=== PATIENT | male | born 1940 | race Caucasian/White ===

== ENCOUNTER 2019-02-24 15:12 | Inpatient (IN) | payer MEDICARE, OTHER ==
[2019-02-24] MEDS ORDERED: SODIUM CHLORIDE 0.9% 1,000 ML IV STA (16:08)
[2019-02-24] MEDS ORDERED: HYDROmorphone 1 MG/ML 1 ML SYRINGE IVP STA (16:08)
--- NOTE | 2019-02-24 16:15 | ED ---
General Adult HPI - General Chief complaint: Fall Stated complaint: Fall Time Seen by Provider: 02/24/19 15:31 Source: patient, family, EMS, RN notes reviewed Mode of arrival: EMS Limitations: no limitations - History of Present Illness Initial comments: Patient is a pleasant 78-year-old male presenting to the emergency department following a fall. Patient was climbing up a ladder towards the roof. Patient was not yet to the roof and was estimated fell around 7 feet. Patient states he fell because of his chronic vertigo. Patient landed on his left posterior shoulder. Patient has significant discomfort in this area, increased with movement. Patient states it hurts to take a deep breath otherwise does not feel short of breath. Patient denies anterior chest pain or abdominal pain. No head injury or loss of consciousness. Patient denies neck or midline back discomfort. Patient denies significant extremity injury. Patient did not attem pt to ambulate. Patient denies head injury or loss of consciousness. - Related Data Home Medications Medication Instructions Recorded Confirmed Levothyroxine Sodium [Synthroid] 75 mcg PO DAILY 02/24/19 02/24/19 Losartan [Cozaar] 50 mg PO DAILY 02/24/19 02/24/19 Lovastatin [Mevacor] 10 mg PO HS 02/24/19 02/24/19 Allergies Allergy/AdvReac Type Severity Reaction Status Date / Time fentanyl Allergy Unknown Verified 02/24/19 16:14 Review of Systems ROS Statement: Those systems with pertinent positive or pertinent negative responses have been documented in the HPI. ROS Other: All systems not noted in ROS Statement are negative. Constitutional: Denies: fever Eyes: Denies: eye pain ENT: Denies: ear pain Respiratory: Reports: as per HPI. Denies: cough Cardiovascular: Denies: chest pain Endocrine: Denies: fatigue Gastrointestinal: Denies: abdominal pain Genitourinary: Denies: dysuria Musculoskeletal: Reports: as per HPI Skin: Denies: rash Neurological: Denies: weakness Psychiatric: Denies: depression Past Medical History Past Medical History: Hyperlipidemia, Hypertension, Thyroid Disorder Additional Past Medical History / Comment(s): vertigo, History of Any Multi-Drug Resistant Organisms: None Reported Past Surgical History: No Surgical Hx Reported Past Psychological History: No Psychological Hx Reported Smoking Status: Never smoker Past Alcohol Use History: Occasional Past Drug Use History: None Reported General Exam Limitations: no limitations General appearance: alert Head exam: Present: atraumatic Eye exam: Present: normal appearance, PERRL Neck exam: Present: normal inspection. Absent: tenderness Respiratory exam: Present: normal lung sounds bilaterally, chest wall tenderness (Mild tenderness left upper anterior chest wall and left clavicle region) Cardiovascular Exam: Present: regular rate, normal rhythm Expanded Peripheral pulses: 2+: Radial (R), Radial (L) GI/Abdominal exam: Present: soft. Absent: distended, tenderness, guarding, rebound, rigid Extremities exam: Present: normal inspection, other (Decreased range of motion of the left shoulder secondary to pain). Absent: tenderness Back exam: Present: tenderness (Left scapular region). Absent: vertebral tenderness Neurological exam: Present: alert. Absent: motor sensory deficit Expanded Motor strength exam: RUE: 5, LUE: 5, RLE: 5, LLE: 5 Eye Response: (4) open spontaneously Motor Response: (6) obeys commands Verbal Response: (5) oriented Psychiatric exam: Present: normal affect, normal mood Skin exam: Present: abrasion (Left marcelo without bony tenderness), other (Minimal abrasion (anterior abdomen without tenderness.) Course Vital Signs 02/24/19 02/24/19 02/24/19 15:26 15:54 17:03 Temperature 97 F L Pulse Rate 63 68 Respiratory 20 18 Rate Blood Pressure 144/79 143/76 O2 Sat by Pulse 91 L 96 93 L Oximetry - Reevaluation(s) Reevaluation #1: 02/24/19 18:08 Patient reevaluated. Patient and family updated. Case discussed in detail, surgeon, Dr. maxwell, who will admit and does request medicine and pulmonary consult. EKG Findings - EKG Comments: EKG Findings:: Sinus bradycardia 59. ID 188. QRS 84. QT 440. QTc 435. Normal axis. Normal QRS. No acute ST change. Medical Decision Making - Lab Data Result diagrams: 02/24/19 15:39 02/24/19 15:39 Lab Results 02/24/19 02/24/19 02/24/19 Range/Units 15:39 15:39 15:39 WBC 11.5 H (3.8-10.6) k/uL RBC 4.78 (4.30-5.90) m/uL Hgb 14.9 (13.0-17.5) gm/dL Hct 44.2 (39.0-53.0) % MCV 92.4 (80.0-100.0) fL MCH 31.2 (25.0-35.0) pg MCHC 33.8 (31.0-37.0) g/dL RDW 12.5 (11.5-15.5) % Plt Count 206 (150-450) k/uL Neutrophils % 62 % Lymphocytes % 27 % Monocytes % 5 % Eosinophils % 4 % Basophils % 1 % Neutrophils # 7.1 (1.3-7.7) k/uL Lymphocytes # 3.1 (1.0-4.8) k/uL Monocytes # 0.6 (0-1.0) k/uL Eosinophils # 0.5 (0-0.7) k/uL Basophils # 0.1 (0-0.2) k/uL PT 10.1 (9.0-12.0) sec INR 0.9 (<1.2) APTT 22.2 (22.0-30.0) sec Sodium 139 (137-145) mmol/L Potassium 4.5 (3.5-5.1) mmol/L Chloride 104 (98-107) mmol/L Carbon Dioxide 25 (22-30) mmol/L Anion Gap 10 mmol/L BUN 26 H (9-20) mg/dL Creatinine 1.01 (0.66-1.25) mg/dL Est GFR (CKD-EPI)AfAm 82 (>60 ml/min/1.73 sqM) Est GFR (CKD-EPI)NonAf 71 (>60 ml/min/1.73 sqM) Glucose 101 H (74-99) mg/dL Calcium 9.3 (8.4-10.2) mg/dL Total Bilirubin 0.5 (0.2-1.3) mg/dL AST 33 (17-59) U/L ALT 27 (21-72) U/L Alkaline Phosphatase 79 (38-126) U/L Total Protein 6.7 (6.3-8.2) g/dL Albumin 4.0 (3.5-5.0) g/dL Serum Alcohol <10 mg/dL Blood Type Blood Type Confirm Blood Type Recheck Bld Type Recheck Status Antibody Screen Spec Expiration Date 02/24/19 02/24/19 Range/Units 16:25 16:33 WBC (3.8-10.6) k/uL RBC (4.30-5.90) m/uL Hgb (13.0-17.5) gm/dL Hct (39.0-53.0) % MCV (80.0-100.0) fL MCH (25.0-35.0) pg MCHC (31.0-37.0) g/dL RDW (11.5-15.5) % Plt Count (150-450) k/uL Neutrophils % % Lymphocytes % % Monocytes % % Eosinophils % % Basophils % % Neutrophils # (1.3-7.7) k/uL Lymphocytes # (1.0-4.8) k/uL Monocytes # (0-1.0) k/uL Eosinophils # (0-0.7) k/uL Basophils # (0-0.2) k/uL PT (9.0-12.0) sec INR (<1.2) APTT (22.0-30.0) sec Sodium (137-145) mmol/L Potassium (3.5-5.1) mmol/L Chloride (98-107) mmol/L Carbon Dioxide (22-30) mmol/L Anion Gap mmol/L BUN (9-20) mg/dL Creatinine (0.66-1.25) mg/dL Est GFR (CKD-EPI)AfAm (>60 ml/min/1.73 sqM) Est GFR (CKD-EPI)NonAf (>60 ml/min/1.73 sqM) Glucose (74-99) mg/dL Calcium (8.4-10.2) mg/dL Total Bilirubin (0.2-1.3) mg/dL AST (17-59) U/L ALT (21-72) U/L Alkaline Phosphatase (38-126) U/L Total Protein (6.3-8.2) g/dL Albumin (3.5-5.0) g/dL Serum Alcohol mg/dL Blood Type B Positive Blood Type Confirm B Positive Blood Type Recheck No Previous Record Bld Type Recheck Status CABO Indicated Antibody Screen NEGATIVE Spec Expiration Date 02/27/2019 - 9410 - Radiology Data Radiology results: report reviewed (Computed tomography scan of the brain and cervical spine show no acute process), image reviewed (Chest x-ray does show left third rib fracture. Enlarged heart/mediastinum. Possible small right pneumothorax. Computed tomography scan of the chest abdomen pelvis shows bilateral rib fractures. Tiny right pneumothorax. Infrarenal abdominal aorta aneurysm 4.2 cm small volume adjacent retrosternal blood products were pronounced on the left.) Disposition Clinical Impression: Fall, Multiple fractures of ribs of both sides, Pneumothorax Disposition: ADMITTED IP TO THIS HOSP Condition: Serious Is patient prescribed a controlled substance at d/c from ED?: No Referrals: Moises Urbina MD [Primary Care Provider] - 1-2 days Decision Time: 18:09
[2019-02-24 16:23] LABS: Basophils # (A) 0.1 k/uL (0-0.2); Basophils % (A) 1 %; Eosinophils # (A) 0.5 k/uL (0-0.7); Eosinophils % (A) 4 %; HCT 44.2 % (39.0-53.0); HGB 14.9 gm/dL (13.0-17.5); Lymphocytes # (A) 3.1 k/uL (1.0-4.8); Lymphocytes % (A) 27 %; MCH 31.2 pg (25.0-35.0); MCHC 33.8 g/dL (31.0-37.0); MCV 92.4 fL (80.0-100.0); Mean Platelet Volume 6.5; Monocytes # (A) 0.6 k/uL (0-1.0); Monocytes % (A) 5 %; Neutrophils # (A) 7.1 k/uL (1.3-7.7); Neutrophils % (A) 62 %; Platelet Count 206 k/uL (150-450); RBC 4.78 m/uL (4.30-5.90); RDW 12.5 % (11.5-15.5); WBC 11.5 k/uL (3.8-10.6)
[2019-02-24 16:32] LABS: ALT 27 U/L (21-72); AST 33 U/L (17-59); African American GFR (CKD) 82 (>60 ml/min/1.73 sqM); Alcohol <10 mg/dL; Alkaline Phosphatase 79 U/L (38-126); Anion Gap 10 mmol/L; Blood Urea Nitrogen 26 mg/dL (9-20); Calcium 9.3 mg/dL (8.4-10.2); Carbon Dioxide 25 mmol/L (22-30); Chloride 104 mmol/L (98-107); Glucose 101 mg/dL (74-99); Non-African American GFR(CKD) 71 (>60 ml/min/1.73 sqM); Potassium 4.5 mmol/L (3.5-5.1); Sodium 139 mmol/L (137-145); Total Bilirubin 0.5 mg/dL (0.2-1.3); Total Protein 6.7 g/dL (6.3-8.2)
[2019-02-24 16:38] LABS: INR 0.9 (<1.2); Partial Thromboplastin Time 22.2 sec (22.0-30.0); Prothrombin Time 10.1 sec (9.0-12.0)
--- NOTE | 2019-02-24 17:28 | CT ---
EXAMINATION TYPE: CT brain lata gonzalez DATE OF EXAM: 02/24/2019 COMPARISON: None. HISTORY: Left sided injuries after 7 foot fall from roof. TECHNIQUE: 1. Axial CT images of the head without contrast. Bone windows and sagittal and coronal reformats were reviewed. 2. Axial CT images of the cervical spine without contrast. Bone windows and sagittal and coronal refo rmats were reviewed. 3. CT DLP: 1485.3 mGycm Automated exposure control for dose reduction was used. FINDINGS: CT Head: No acute intracranial hemorrhage. Scattered periventricular and deep cortical white matter areas of l ow attenuation, likely representing sequela of chronic microangiopathy. No acute loss of vergara-white m atter differentiation to suggest large territorial infarction. Mild cerebral volume loss with appropriate size and morphology of the ventricular system. No extra-ax ial fluid collections or midline shift of structures. Patent basal cisterns. No depressed or displaced calvarial fracture. Intracranial vascular calcifications. Unaggressive opac ification of the bilateral maxillary sinuses and scattered ethmoid air cells. Surgically absent lense s. CT Cervical Spine: The cervical spine is imaged through T2. Vertebral bodies and facet joints are anatomically aligned. No fracture. Vertebral body heights are maintained. Moderate degenerative changes throughout the cervical spine characterized by disc height loss, restrictive preparation operator ior vertebral body spurring, and discogenic endplate change, greatest degree at C3-C4 and C6-C7. Mult ilevel uncovertebral and facet spurs. No prevertebral edema. Carotid vascular calcifications. Subcutaneous emphysema in the right neck soft tissues. Findings are reported separately. IMPRESSION: 1. No acute intracranial abnormality. Senescent changes including cerebral volume loss and sequale of chronic microangiopathy. 2. No acute traumatic injury of the cervical spine.
--- NOTE | 2019-02-24 17:38 | XR ---
EXAMINATION TYPE: XR chest 1V portable DATE OF EXAM: 02/24/2019 COMPARISON: 05/27/2011 HISTORY: Chest pain after fall from approximately 7 feet TECHNIQUE: Single frontal view of the chest is obtained. FINDINGS: There is a suspected trace right pneumothorax and patchy reticular opacities that may repr esent pulmonary contusions. Cardia mediastinal silhouette is enlarged. Correlate for thoracic injury. Trace left pleural effusion. Osseous structures are somewhat suboptimally visualized given patient b claire habitus. No displaced fractures are grossly evident that should be further characterized with CT. IMPRESSION: 1. Suspected small right pneumothorax and peripheral reticular opacities that may represent pulmonary contusions. 2. Widened mediastinum. Correlate for thoracic injury.
--- NOTE | 2019-02-24 17:46 | CT ---
EXAMINATION TYPE: CT ChestAbdPelvis w con DATE OF EXAM: 02/24/2019 COMPARISON: CT cervical spine same day. HISTORY: Left sided injuries after 7 foot fall from roof. CT DLP: 1003.5 mGycm Automated exposure control for dose reduction was used. CONTRAST: CT scan of the chest, abdomen and pelvis is performed without Oral Contrast and with IV Contrast, pat ient injected with 100 mL of Isovue 300. FINDINGS: CT Chest: Trace right pneumothorax. Dependent atelectasis bilaterally. Scattered emphysematous changes. No cons olidation. No pleural effusion. Bilateral pleural calcifications. Secretions in the right bronchus in termedius. Normal course and caliber of the thoracic aorta; scattered calcified and noncalcified plaque present throughout. The heart is not enlarged. No pericardial effusion. Minimally displaced right anterior first rib fracture, fracture through the second costochondral junc tion, and anterior third rib. Minimally displaced fractures through the left third, fourth, and fifth anterior ribs. Small volume adjacent retrosternal blood products more pronounced on the left. Air al rosendo the right chest soft tissues extending into the neck. CT Abdomen/Pelvis: The liver, spleen, pancreas, and adrenal glands are within normal limits. No calcified gallstones. No intra or extrahepatic biliary ductal dilatation. Renal enhancement is symmetric. Fluid attenuating left renal lesions, largest at the inferior pole me asuring up to 10 cm in craniocaudal dimension (may represent 2 adjacent cysts); adjacent fluid infilt ration into the adjacent retroperitoneal fat. Urinary bladder is within normal limits. Coarse prostat ic calcifications. No dilated bowel, free intraperitoneal fluid, or free air. Scattered colonic diverticula. No mesenter ic inflammatory changes. Patulous bilateral inguinal hernias, left larger than right. Calcified and noncalcified plaque of the abdominal aorta with infrarenal diameter measuring 4.2 x 4.2 cm. No fracture. IMPRESSION: 1. Bilateral rib fractures with trace right pneumothorax. 2. Left renal cysts with fluid infiltration into the retroperitoneal fat raises the possibility of ru ptured cyst. 3. Infrarenal abdominal aortic aneurysm measuring up to 4.2 cm in diameter.
[2019-02-24] MEDS ORDERED: HYDROcodone/APAP 5-325MG 1 EACH TAB PO PRN (18:13)
[2019-02-24] MEDS ORDERED: NALOXONE 0.4 MG/ML 1 ML VIAL IV PRN (18:13)
[2019-02-24] MEDS ORDERED: ONDANSETRON 4 MG/2 ML VIAL IVP PRN (18:13)
[2019-02-24] MEDS: HYDROcodone/APAP 5-325MG 1 EACH TAB PO PRN (19:15)
[2019-02-24] MEDS: LACTATED RINGERS 1,000 ML IV SCH (21:18)
[2019-02-24 21:51] LABS: Appearance,Urine Clear (Clear); Bilirubin,Urine Negative (Negative); Blood,Urine Negative (Negative); Color,Urine Light Yellow; Glucose,Urine (UA) Negative (Negative); Ketones,Urine 1+ (Negative); Leukocyte Esterase,Urine Negative (Negative); Nitrite,Urine Negative (Negative); PH, Urine 5.5 (5.0-8.0); Protein,Urine Negative (Negative); Urobilinogen,Urine <2.0 mg/dL (<2.0)
[2019-02-24 22:17] LABS: Amphetamine Screen,Urine Not Detected (NotDetected); Barbiturate Screen,Urine Not Detected (NotDetected); Benzodiazepines Screen,Urine Not Detected (NotDetected); Cocaine Screen,Urine Not Detected (NotDetected); Methadone Screen, Urine Not Detected (NotDetected); Opiate Screen,Urine Not Detected (NotDetected); Oxycodone Screen, Urine Not Detected (NotDetected); Phencyclidine Screen,Urine Not Detected (NotDetected); Tricyclic Antidepressant,Urine Not Detected (NotDetected); Urn Cannabinoid Scrn Not Detected (NotDetected)
[2019-02-24 22:26] LABS: Specific Gravity,Urine 1.048 (1.001-1.035)
[2019-02-24] MEDS: HYDROmorphone 1 MG/ML 1 ML SYRINGE IVP PRN (23:55)
[2019-02-25] MEDS: HYDROmorphone 1 MG/ML 1 ML SYRINGE IVP PRN (05:17)
[2019-02-25] MEDS: LEVOTHYROXINE 75 MCG TAB PO SCH (05:18)
[2019-02-25 06:48] LABS: Basophils # (A) 0.1 k/uL (0-0.2); Basophils % (A) 1 %; Eosinophils # (A) 0.2 k/uL (0-0.7); Eosinophils % (A) 2 %; HCT 42.5 % (39.0-53.0); HGB 13.4 gm/dL (13.0-17.5); Lymphocytes # (A) 2.7 k/uL (1.0-4.8); Lymphocytes % (A) 21 %; MCH 30.1 pg (25.0-35.0); MCHC 31.5 g/dL (31.0-37.0); MCV 95.6 fL (80.0-100.0); Mean Platelet Volume 7.5; Monocytes # (A) 0.8 k/uL (0-1.0); Monocytes % (A) 6 %; Neutrophils # (A) 8.6 k/uL (1.3-7.7); Neutrophils % (A) 68 %; Platelet Count 172 k/uL (150-450); RBC 4.44 m/uL (4.30-5.90); RDW 12.8 % (11.5-15.5); WBC 12.5 k/uL (3.8-10.6)
[2019-02-25] MEDS: FAMOTIDINE 20 MG TAB PO SCH ×2 (08:41→20:50)
[2019-02-25] MEDS: LOSARTAN 50 MG TAB PO SCH (08:41)
[2019-02-25] MEDS: HEPARIN SODIUM,PORCINE 5,000 UNIT/ML 1 ML VIAL SQ SCH ×2 (08:41→20:50)
[2019-02-25] MEDS: HYDROcodone/APAP 5-325MG 1 EACH TAB PO PRN (08:42)
[2019-02-25] MEDS ORDERED: IV FLUID CONTINUATION 1,000 ML IV ONE (10:25)
[2019-02-25] MEDS: fentaNYL (PF) 50 MCG/ML 2 ML AMP IV ONE ×2 (11:15→11:20)
--- NOTE | 2019-02-25 11:28 | P.GSHP ---
<Angy Rodriguez A - Last Filed: 02/25/19 14:54> History of Present Illness H&P Date: 02/25/19 Chief Complaint: trauma CHIEF COMPLAINT: s/p fall HISTORY OF PRESENT ILLNESS: 78 year old male who presented to the ER after sustaining a fall. Patient reports he was attempting to go on his roof to fix something. He was climbing a ladder when he fell approximately 10 feet. Patient reports he has chronic vertigo and states as he was climbing the ladder he be come dizzy and felt like everything was spinning. He reports landing on his left shoulder. Denies hitting his head. Denies LOC. He reports significant pain to his left shoulder and bilateral anterior chest wall this morning. He was been using his incentive spirometer. Able to achieve 500-1000cc. PAST MEDICAL HISTORY: See list. PAST SURGICAL HISTORY: See list. MEDICATIONS: See list. ALLERGIES: See list. SOCIAL HISTORY: No illicit drug use. REVIEW OF SYSTEMS: CONSTITUTIONAL: Denies fever or chills. HEENT: Denies blurred vision, vision changes, or eye pain. Denies hemoptysis Reports chronic vertigo. ENDOCRINE: Denies heat or cold intolerance. CARDIOVASCULAR: Denies chest pain or pressure. RESPIRATORY: No shortness of breath. GASTROINTESTINAL: Denies abdominal pain. Denies nausea or vomiting. NEURO: Denies history of seizures. PSYCH: No depression or suicidal ideation HEMATOLOGIC: Denies bleeding disorders. LYMPHATIC: The patient denies any lumps and bumps around the neck. GENITOURINARY: Denies any blood in urine or increased urinary frequency. MUSCULOSKELETAL: Denies myalgias. Denies joint swelling. Denies decreased range of motion beyond patients baseline. SKIN: Denies pruitis. Denies rash. PHYSICAL EXAM: VITAL SIGNS: Reviewed GENERAL: Well-developed in no acute distress. HEENT: Hard of hearing. No sclera icterus. Extraocular movements grossly intact. Moist buccal mucosa. Head is atraumatic, normocephalic. No nasal drainage. NECK: Supple without lymphadenopathy. CHEST: Non-labored respirations and equal bilateral excursions. on 3L NC. CARDIOVASCULAR: Regular rate with regular rhythm. Palpable 2+ radial pulses. ABDOMEN: Soft. Nondistended. Nontender. MUSCULOSKELETAL: No clubbing, cyanosis or edema. NEUROLOGIC: No focal or lateralizing signs. Cranial nerves II through XII grossly intact. PSYCH: Appropriate affect. Alert and oriented to person, place and time. SKIN: Well perfused. Good skin turgor. Multiple abrasions to bilateral lower extremities. LABORATORY DATA: WBC 11.5. Hemoglobin 14.9. Platelet count 206. Sodium 139. Potassium 4.5. BUN 26. Creatinine 1.01. Glucose 101. Lactic acid 0.9. IMAGIN. CT head and cervical spine: No acute intercranial abnormality. No acute traumatic injury of the cervical spine 2. CT chest abdomen pelvis: Minimally displaced right anterior first rib fracture fracture through the second costochondral junction anterior third rib. Minimally displaced fractures to the left third fourth and fifth anterior ribs. Trace right pneumothorax 3. Chest x-ray: Suspected small right pneumothorax and peripheral reticular opacities that may represent pulmonary contusions. Widened mediastinum. ASSESSMENT: 1. Trauma, s/p fall from ladder, approximately 10 feet, secondary to pre- existing chronic vertigo 2. Multiple bilateral rib fractures 3. Small right pneumothorax 4. Pulmonary contusions 5. Chronic vertigo PLAN: 1. Patient continues to have left shoulder pain. Will obtain XR of left shoulder. 2. Anesthesia consulted for possible epidural placement for pain control 3. Pulmonary consulted. Await input 4. Repeat CXR ordered this morning. Await results 5. Continue incentive spirometey 6. Activity as tolerated 7. Diet as tolerated 8. Recommend workup for chronic vertigo. Patient reports not seeing radial drill operator for plastic in over 12 years. Nurse practitioner note has been reviewed by physician. Signing provider agrees with the documented findings, assessment, and plan of care. Past Medical History Past Medical History: Hyperlipidemia, Hypertension, Thyroid Disorder Additional Past Medical History / Comment(s): vertigo, History of Any Multi-Drug Resistant Organisms: None Reported Past Surgical History: No Surgical Hx Reported Past Psychological History: No Psychological Hx Reported Smoking Status: Never smoker Past Alcohol Use History: Occasional Past Drug Use History: None Reported Medications and Allergies Home Medications Medication Instructions Recorded Confirmed Type Levothyroxine Sodium [Synthroid] 75 mcg PO DAILY 02/24/19 02/24/19 History Losartan [Cozaar] 50 mg PO DAILY 02/24/19 02/24/19 History Lovastatin [Mevacor] 10 mg PO HS 02/24/19 02/24/19 History Allergies Allergy/AdvReac Type Severity Reaction Status Date / Time fentanyl Allergy Unknown Verified 02/24/19 16:14 Surgical - Exam Vital Signs Temp Pulse Resp BP Pulse Ox 97 F L 63 20 144/79 91 L 02/24/19 15:26 02/24/19 15:26 02/24/19 15:26 02/24/19 15:26 02/24/19 15:26 Results - Labs 02/25/19 06:33 02/24/19 15:39 Abnormal Lab Results - Last 24 Hours (Table) 02/24/19 02/24/19 02/24/19 Range/Units 15:39 15:39 19:52 WBC 11.5 H (3.8-10.6) k/uL Neutrophils # (1.3-7.7) k/uL BUN 26 H (9-20) mg/dL Glucose 101 H (74-99) mg/dL Ur Specific [place] 1.048 H (1.001-1.035) Urine Ketones 1+ H (Negative) 02/25/19 Range/Units 06:33 WBC 12.5 H (3.8-10.6) k/uL Neutrophils # 8.6 H (1.3-7.7) k/uL BUN (9-20) mg/dL Glucose (74-99) mg/dL Ur Specific [place] (1.001-1.035) Urine Ketones (Negative) Diabetes panel 02/24/19 Range/Units 15:39 Sodium 139 (137-145) mmol/L Potassium 4.5 (3.5-5.1) mmol/L Chloride 104 (98-107) mmol/L Carbon Dioxide 25 (22-30) mmol/L BUN 26 H (9-20) mg/dL Creatinine 1.01 (0.66-1.25) mg/dL Glucose 101 H (74-99) mg/dL Calcium 9.3 (8.4-10.2) mg/dL AST 33 (17-59) U/L ALT 27 (21-72) U/L Alkaline Phosphatase 79 (38-126) U/L Total Protein 6.7 (6.3-8.2) g/dL Albumin 4.0 (3.5-5.0) g/dL Calcium panel 02/24/19 Range/Units 15:39 Calcium 9.3 (8.4-10.2) mg/dL Albumin 4.0 (3.5-5.0) g/dL Pituitary panel 02/24/19 Range/Units 15:39 Sodium 139 (137-145) mmol/L Potassium 4.5 (3.5-5.1) mmol/L Chloride 104 (98-107) mmol/L Carbon Dioxide 25 (22-30) mmol/L BUN 26 H (9-20) mg/dL Creatinine 1.01 (0.66-1.25) mg/dL Glucose 101 H (74-99) mg/dL Calcium 9.3 (8.4-10.2) mg/dL Adrenal panel 02/24/19 Range/Units 15:39 Sodium 139 (137-145) mmol/L Potassium 4.5 (3.5-5.1) mmol/L Chloride 104 (98-107) mmol/L Carbon Dioxide 25 (22-30) mmol/L BUN 26 H (9-20) mg/dL Creatinine 1.01 (0.66-1.25) mg/dL Glucose 101 H (74-99) mg/dL Calcium 9.3 (8.4-10.2) mg/dL Total Bilirubin 0.5 (0.2-1.3) mg/dL AST 33 (17-59) U/L ALT 27 (21-72) U/L Alkaline Phosphatase 79 (38-126) U/L Total Protein 6.7 (6.3-8.2) g/dL Albumin 4.0 (3.5-5.0) g/dL Assessment and Plan (1) Vertigo Current Visit: Yes Status: Acute Code(s): R42 - DIZZINESS AND GIDDINESS SNOMED Code(s): 668707668 (2) Pulmonary contusion Current Visit: Yes Status: Acute Code(s): S27.329A - CONTUSION OF LUNG, UNSPECIFIED, INITIAL ENCOUNTER SNOMED Code(s): 466787479 (3) Fall Current Visit: Yes Status: Acute Code(s): W19.XXXA - UNSPECIFIED FALL, INITIAL ENCOUNTER SNOMED Code(s): 8215191 (4) Multiple fractures of ribs of both sides Current Visit: Yes Status: Acute Code(s): S22.43XA - MULTIPLE FRACTURES OF RIBS, BILATERAL, INIT FOR CLOS FX SNOMED Code(s): 6831599 (5) Pneumothorax Current Visit: Yes Status: Acute Code(s): J93.9 - PNEUMOTHORAX, UNSPECIFIED SNOMED Code(s): 12389179 <Bess Carreno N - Last Filed: 02/26/19 08:49> History of Present Illness Patient reports that he had vertigo as a cause of his fall from the ladder. He has not had any work-up for over 12 years for his condition. His pain is better with epidural. Hospitalization for at least 3 days with epidural reviewed. Recommend transfer to medicine for medical cause of fall from ladder. Pulmonary following. Will follow as needed. Past Medical History - Past Family History Father Additional Family Medical History / Comment(s): Father from a myocardial infarction. Mother Additional Family Medical History / Comment(s): Mother had history of coronary artery disease and emphysema. Sister(s) Additional Family Medical History / Comment(s): The patient had one sister that from some type of cancer and one was murdered. Son(s) Additional Family Medical History / Comment(s): Patient had 2 sons. One as a teenager in a motor vehicle accident. One son is no major medical problems. Patient has one daughter that had myocardial infarction. Surgical - Exam Vital Signs Temp Pulse Resp BP Pulse Ox 97 F L 63 20 144/79 91 L 02/24/19 15:26 02/24/19 15:26 02/24/19 15:26 02/24/19 15:26 02/24/19 15:26 Results - Labs 02/25/19 06:33 02/24/19 15:39
[2019-02-25] MEDS ORDERED: diphenhydrAMINE 50 MG/ML 1 ML VIAL IVP PRN (11:31)
[2019-02-25] MEDS ORDERED: NALOXONE 0.4 MG/ML 1 ML VIAL IV PRN (11:31)
[2019-02-25] MEDS ORDERED: SODIUM CHLORIDE 0.9% 1,000 ML IV ONE (11:32)
--- NOTE | 2019-02-25 11:39 | P.PCN ---
Date of Procedure: 02/25/19 Procedure(s) Performed: Procedure= continue thoracic epidural catheter placement ,for pain control. Preoperative diagnoses= multiple rib fractures with left-sided chest wall pain. Postoperative diagnosis= same as preop diagnosis. Complications=none. Condition= stable. Description of the procedure= this is 78 years old male who had multiple fractures after he fell, and he continued to have severe chest wall pain patient will be good candidate to have thoracic epidural catheter placement procedure risk and benefits and alternatives discussed with the patient he agreed with the preceding, patient in the procedure area placed in sitting position, back prepped with Betadine 3, then under sterile technique, and the 56 levels local infiltration of the skin and subcu interstitial with lidocaine 1% 3 mL then 18- gauge Tuohy needle advanced slowly under was positive loss of resistance to normal saline no heme no paresthesia no cerebrospinal fluid, then the catheter threaded easily and taped at 10 cm, Tegaderm applied and taped
[2019-02-25] MEDS: ROPIVACAINE 250 MG, HYDROMORPHONE (PF) 5 MG in SODIUM CHLORIDE 0.9% 200 ML EPIDURAL PRN (12:30)
[2019-02-25] MEDS ORDERED: diphenhydrAMINE 25 MG CAP PO PRN (14:11)
--- NOTE | 2019-02-25 15:40 | P.CONS ---
History of Present Illness - Reason for Consult Consult date: 02/25/19 Medical management - History of Present Illness This is a 78-year-old male patient of Dr. Moises Urbnia with past medical history of hypertension, hyperlipidemia, hypothyroidism, vertigo. Patient will was apparently climbing a ladder to get onto his roof at about 10 feet in height and his foot got caught as well as there was a wind along with his chronic vertigo, patient had a fall landing on his left posterior shoulder. He came into [facility] for evaluation. He did not have a loss of consciousness or head injury. Initial pulse ox was 91%, otherwise hemodynamically stable. EKG was a sinus bradycardia with no acute ST- T wave changes. WBC 11.5, hemoglobin 14.9. Electrolytes within normal limits, blood sugar 101, BUN 26 creatinine 1.01. Liver function tests within normal limits. CAT scan of the brain and cervical spine showed no acute process. Chest x-ray showed suspected small right pneumothorax and peripheral reticular opacities may represent pulmonary contusions. Widened mediastinum. Correlate for thoracic injury. CAT scan of the chest abdomen and pelvis revealed bilateral rib fractures with trace right pneumothorax. Left renal cyst with fluid infiltration into the retroperitoneal fat raises possibility of ruptured cyst. Infrarenal abdominal aortic aneurysm measuring 4.2 cm. Minimally displaced right anterior first rib fracture, fracture through the second costochondral junction and anterior third rib. Minimal displaced fractures through the left third fourth and fifth anterior ribs. [facility] under the care of Dr. Carreno. Patient is status post epidural pain pump. Review of Systems Constitutional: Denies chills, Denies fatigue, Denies fever, Denies poor appetite, Denies weakness Eyes: denies blurred vision, denies pain Ears, nose, mouth and throat: Reports vertigo, Denies headache, Denies nasal congestion, Denies nasal discharge Cardiovascular: Reports chest pain, Denies shortness of breath, Denies syncope Respiratory: Denies congestion, Denies cough, Denies cough with sputum, Denies dyspnea, Denies excessive sputum, Denies hemoptysis, Denies home oxygen, Denies respiratory infections, Denies wheezing Gastrointestinal: Denies abdominal pain, Denies diarrhea, Denies nausea, Denies vomiting Genitourinary: Denies dysuria, Denies urinary frequency, Denies urinary hesitancy, Denies urinary retention Musculoskeletal: Reports gait dysfunction, Denies myalgias Integumentary: Reports wounds, Denies pruritus, Denies rash Neurological: Reports vertigo, Denies change in mentation, Denies change in speech, Denies numbness, Denies weakness Psychiatric: Denies anxiety, Denies depression Endocrine: Denies fatigue, Denies weight change Past Medical History Past Medical History: Hyperlipidemia, Hypertension, Thyroid Disorder Additional Past Medical History / Comment(s): vertigo, History of Any Multi-Drug Resistant Organisms: None Reported Past Surgical History: No Surgical Hx Reported Past Psychological History: No Psychological Hx Reported Smoking Status: Never smoker Past Alcohol Use History: Occasional Additional Past Alcohol Use History / Comment(s): Patient quit smoking 35 years ago. He uses alcohol rarely. He no illicit drug use. Lives with his . There are no pets in the home. Patient does not require oxygen, nebulizer, CPAP. Past Drug Use History: None Reported - Past Family History Father Additional Family Medical History / Comment(s): Father from a myocardial infarction. Mother Additional Family Medical History / Comment(s): Mother had history of coronary artery disease and emphysema. Sister(s) Additional Family Medical History / Comment(s): The patient had one sister that from some type of cancer and one was murdered. Son(s) Additional Family Medical History / Comment(s): Patient had 2 sons. One as a teenager in a motor vehicle accident. One son is no major medical problems. Patient has one daughter that had myocardial infarction. Medications and Allergies Home Medications Medication Instructions Recorded Confirmed Type Levothyroxine Sodium [Synthroid] 75 mcg PO DAILY 02/24/19 02/24/19 History Losartan [Cozaar] 50 mg PO DAILY 02/24/19 02/24/19 History Lovastatin [Mevacor] 10 mg PO HS 02/24/19 02/24/19 History Allergies Allergy/AdvReac Type Severity Reaction Status Date / Time fentanyl Allergy Unknown Verified 02/24/19 16:14 Physical Exam Vitals: Vital Signs Temp Pulse Pulse Resp BP BP Pulse Ox 02/25/19 11:46 63 18 147/74 94 L 02/25/19 11:25 62 18 142/74 94 L 02/25/19 10:27 52 L 16 132/69 95 02/25/19 07:57 96 02/25/19 07:00 98 F 59 L 16 113/65 94 L 02/25/19 02:11 98.4 F 75 18 132/76 95 02/24/19 23:45 74 16 02/24/19 19:57 97.6 F 76 18 168/78 94 L 02/24/19 19:38 94 L 02/24/19 19:30 16 02/24/19 18:47 97 F L 62 18 127/70 94 L 02/24/19 17:03 68 18 143/76 93 L 02/24/19 15:54 96 02/24/19 15:26 97 F L 63 20 144/79 91 L Intake and Output 02/24/19 02/25/19 02/25/19 22:59 06:59 14:59 Intake Total 1400 200 Output Total 600 0 Balance -600 1400 200 Intake: IV 200 Intake, IV Titration 1200 Amount Sodium Chloride 0.9% 1, 1200 000 ml @ 100 mls/hr IV . Q10H [facility] Rx#:[id number] Oral 200 Output: Urine 600 0 Other: Voiding Method Urinal Urinal # Voids 0 400 Weight 90.718 kg Gen: This is a 78-year-old male. He is resting in bed. He is status post epidural pain pump. HEENT: Head is atraumatic, normocephalic. Pupils equal, round. Sclerae is anicteric. NECK: Supple. No JVD. No lymphadenopathy. No thyromegaly. LUNGS: Clear to auscultation. No wheezes or rhonchi. No intercostal retractions. No subcutaneous emphysema. HEART: Regular rate and rhythm. No murmur. ABDOMEN: Soft. Bowel sounds are present. No masses. No tenderness. EXTREMITIES: No pedal edema. Abrasions to the left pretibial area. No cellulitis. NEUROLOGICAL: Patient is awake, alert and oriented x3. Cranial nerves 2 through 12 are grossly intact. Results CBC & Chem 7: 02/25/19 06:33 02/24/19 15:39 Labs: Abnormal Lab Results - Last 24 Hours (Table) 02/24/19 02/24/19 02/24/19 Range/Units 15:39 15:39 19:52 WBC 11.5 H (3.8-10.6) k/uL Neutrophils # (1.3-7.7) k/uL BUN 26 H (9-20) mg/dL Glucose 101 H (74-99) mg/dL Ur Specific [place] 1.048 H (1.001-1.035) Urine Ketones 1+ H (Negative) 02/25/19 Range/Units 06:33 WBC 12.5 H (3.8-10.6) k/uL Neutrophils # 8.6 H (1.3-7.7) k/uL BUN (9-20) mg/dL Glucose (74-99) mg/dL Ur Specific [place] (1.001-1.035) Urine Ketones (Negative) Assessment and Plan Plan: 1. Trauma from fall off ladder approximately 10 feet sustaining multiple bilateral rib fractures status post epidural pain pump. DuoNeb treatments 4 times daily and as needed, incentive spirometry. Repeat chest x-ray in the morning. Orthostatic vital signs ordered. Dilaudid as needed for pain as well. 2. Chronic vertigo. 3. Small right pneumothorax. 4. Pulmonary contusions. Consult with pulmonary medicine. 5. Shoulder pain, probable contusion. X-ray ordered. 6. Hypertension. Continue losartan 50 mg daily 7. Hyperlipidemia. Continue statin. 8. Hypothyroidism. Continue levothyroxine 75 g daily. 9. DVT prophylaxis. Heparin subcu every 12 hours. 10. GI prophylaxis. Pepcid. Patient will be admitted to the hospital for a minimum of 2 night stay. Discharge plan: To be determined. Impression and plan of care have been directed as dictated by the signing physician. She F[place] nurse practitioner acting as scribe for signing physician.
--- NOTE | 2019-02-25 17:19 | P.CNPUL ---
History of Present Illness Consult date: 02/25/19 Reason for consult: chest pain History of present illness: A 78-year-old male patient fell off a ladder landing on his left shoulder and back area. He was climbing a ladder and he fell off a 10 feet elevation. No altered mentation per no head trauma. His chronic vertigo. He became dizzy apparently and he fell. CAT scan of the head and cervical spine was negative. CAT scan of the chest abdomen and pelvis was done and it showed minimally displaced right anterior first rib fracture second rib costochondral junction fracture and a anterior third rib fracture. Minimal displaced fracture through the left third and fourth and fifth anterior ribs. Small-volume adjacent retrosternal blood products more pronounced on the left. There is a tiny pneumothorax on the right. The liver, spleen, pancreas and adrenal glands were all within normal limits. No other significant abnormalities was noted. The patient had a left renal lesion largest in the inferior pole of the left kidney, measuring 10 cm in size, representing 2 adjacent cysts. Bladder is within normal limits. Prostate is calcified. There was an infrarenal abdominal aortic aneurysm measuring 4.2 cm. Currently the patient is epidural Iressa catheter in place and his pain is under good control. His pain is around 2 out of 10 in severity. He is using incentive spirometer. No signs of any flail chest. He is resting comfortably in bed. He is pulse oxing 94% 3 L nasal cannula. No history of any chronic smoking. No seventh edema. No history of asthma. Most of any cardiac arrhythmias. Hemoglobin stable at 14.9 and then it dropped down to 13.4. No signs of any external bleeding. Review of Systems Constitutional: Denies chills, Denies fever Eyes: denies blurred vision, denies bulging eye, denies decreased vision Ears: deny: decreased hearing, ear discharge, earache, tinnitus Ears, nose, mouth and throat: Denies headache, Denies sore throat Cardiovascular: Reports chest pain (Details discussed above) Respiratory: Denies cough Gastrointestinal: Reports as per HPI Genitourinary: Reports as per HPI Musculoskeletal: Reports as per HPI (chest wall pain and some shoulder pain secondary to fall.) Musculoskeletal: right: as per HPI, left: shoulder pain, absent: ankle pain, ankle stiffness, ankle swelling Integumentary: Reports as per HPI Neurological: Reports as per HPI, Reports vertigo Psychiatric: Reports as per HPI Endocrine: Reports as per HPI Hematologic/Lymphatic: Reports as per HPI Allergic/Immunologic: Reports as per HPI Past Medical History Past Medical History: Hyperlipidemia, Hypertension, Thyroid Disorder Additional Past Medical History / Comment(s): vertigo, History of Any Multi-Drug Resistant Organisms: None Reported Past Surgical History: No Surgical Hx Reported Past Psychological History: No Psychological Hx Reported Smoking Status: Never smoker Past Alcohol Use History: Occasional Additional Past Alcohol Use History / Comment(s): Patient quit smoking 35 years ago. He uses alcohol rarely. He no illicit drug use. Lives with his . There are no pets in the home. Patient does not require oxygen, nebulizer, CPAP. Past Drug Use History: None Reported - Past Family History Father Additional Family Medical History / Comment(s): Father from a myocardial infarction. Mother Additional Family Medical History / Comment(s): Mother had history of coronary artery disease and emphysema. Sister(s) Additional Family Medical History / Comment(s): The patient had one sister that from some type of cancer and one was murdered. Son(s) Additional Family Medical History / Comment(s): Patient had 2 sons. One as a teenager in a motor vehicle accident. One son is no major medical problems. Patient has one daughter that had myocardial infarction. Medications and Allergies Home Medications Medication Instructions Recorded Confirmed Type Levothyroxine Sodium [Synthroid] 75 mcg PO DAILY 02/24/19 02/24/19 History Losartan [Cozaar] 50 mg PO DAILY 02/24/19 02/24/19 History Lovastatin [Mevacor] 10 mg PO HS 02/24/19 02/24/19 History Allergies Allergy/AdvReac Type Severity Reaction Status Date / Time fentanyl Allergy Unknown Verified 02/24/19 16:14 Physical Exam Vitals: Vital Signs Temp Pulse Pulse Resp BP BP Pulse Ox 02/25/19 17:10 94 L 02/25/19 15:00 97.9 F 60 14 113/65 95 02/25/19 13:45 66 150/79 02/25/19 13:30 65 130/71 02/25/19 13:15 68 151/78 02/25/19 13:00 97.8 F 61 16 150/76 93 L 02/25/19 12:15 60 18 134/68 94 L 02/25/19 11:46 63 18 147/74 94 L 02/25/19 11:25 62 18 142/74 94 L 02/25/19 10:27 52 L 16 132/69 95 02/25/19 07:57 96 02/25/19 07:00 98 F 59 L 16 113/65 94 L 02/25/19 02:11 98.4 F 75 18 132/76 95 02/24/19 23:45 74 16 02/24/19 19:57 97.6 F 76 18 168/78 94 L 02/24/19 19:38 94 L 02/24/19 19:30 16 02/24/19 18:47 97 F L 62 18 127/70 94 L Intake and Output 02/25/19 02/25/19 02/25/19 06:59 14:59 22:59 Intake Total 1400 600 Output Total 0 Balance 1400 600 Intake: IV 600 Intake, IV Titration 1200 Amount Sodium Chloride 0.9% 1, 1200 000 ml @ 100 mls/hr IV . Q10H [facility] Rx#:[id number] Oral 200 Output: Urine 0 Other: Voiding Method Urinal # Voids 400 0 GENERAL: Well-developed in no acute distress. Head exam was generally normal. There was no scleral icterus or corneal arcus. Mucous membranes were moist. Neck was supple and without jugular venous distension, thyromegaly, or carotid bruits. Carotids were easily palpable bilaterally. There was no adenopathy. HEENT: Hard of hearing. No sclera icterus. Extraocular movements grossly intact. Moist buccal mucosa. Head is atraumatic, normocephalic. No nasal drainage. NECK: Supple without lymphadenopathy. CHEST: Non-labored respirations and equal bilateral excursions. on 3L NC. No chest wall deformity. The patient has some soreness to palpation over the lateral chest area bilaterally. Breath sounds are equal and symmetrical. No wheezes. No rhonchi. No other issues otherwise for now. CARDIOVASCULAR: Regular rate with regular rhythm. Palpable 2+ radial pulses. ABDOMEN: Soft. Nondistended. Nontender. MUSCULOSKELETAL: No clubbing, cyanosis or edema. NEUROLOGIC: No focal or lateralizing signs. Cranial nerves II through XII grossly intact. PSYCH: Appropriate affect. Alert and oriented to person, place and time. SKIN: Well perfused. Good skin turgor. Multiple abrasions to bilateral lower extremities. Results - Laboratory Findings CBC and BMP: 02/25/19 06:33 02/24/19 15:39 PT/INR, D-dimer PT 10.1 sec (9.0-12.0) 02/24/19 15:39 INR 0.9 (<1.2) 02/24/19 15:39 Abnormal lab findings: Abnormal Labs 02/24/19 02/24/19 02/24/19 15:39 15:39 19:52 WBC 11.5 H Neutrophils # BUN 26 H Glucose 101 H Ur Specific [place] 1.048 H Urine Ketones 1+ H 02/25/19 06:33 WBC 12.5 H Neutrophils # 8.6 H BUN Glucose Ur Specific [place] Urine Ketones - Diagnostic Findings CT scan - chest: image reviewed Assessment and Plan Plan: 1 traumatic fall secondary to falling from a ladder, 10 feet elevation 2 traumatic bilateral rib fractures without signs of any flail chest. 3 muscular skeletal chest wall pain currently epidural bupivacaine and Dilaudid for pain control 4 bilateral right-sided rib fracture 5 small posterior hematoma formation posterior today sternum, secondary to trauma. 6 tiny right-sided pneumothorax, not causing any respiratory distress or hemodynamic instability 7 pulmonary contusion 8 chronic vertigo 9 hypertension 10 hyperlipidemia Plan Continue epidural Dilaudid and bupivacaine for pain control. Incentive spirometer. DVT and GI prophylaxis. Monitor hemoglobin. Resume all medications. Early mobility. Repeat chest x-ray in a.m. We'll continue to follow.
--- NOTE | 2019-02-25 19:12 | XR ---
EXAMINATION TYPE: XR shoulder complete LT DATE OF EXAM: 02/25/2019 COMPARISON: NONE HISTORY: Shoulder pain TECHNIQUE: 3 views FINDINGS: There is amorphous 1.5 cm calcification at the greater tuberosity of the humerus. I see no fracture nor dislocation. Glenohumeral joint is intact. IMPRESSION: Calcific tendinitis. No fracture seen.
--- NOTE | 2019-02-25 19:21 | XR ---
EXAMINATION TYPE: XR chest 1V DATE OF EXAM: 02/25/2019 COMPARISON: Yesterday HISTORY: Chest pain TECHNIQUE: Single frontal view of the chest is obtained. FINDINGS: There is coarse interstitial infiltrates in both lungs. Thoracic aorta is atheromatous. Th ere is blunting of the left costophrenic angle. IMPRESSION: Interstitial pulmonary infiltrates. Left pleural effusion. Atheromatous aorta. No defini te heart failure. This is probably due to significant pulmonary interstitial fibrosis.
[2019-02-25] MEDS: LACTATED RINGERS 1,000 ML IV SCH (20:50)
[2019-02-25] MEDS: ATORVASTATIN 10 MG TAB PO SCH (20:50)
[2019-02-26] MEDS: LEVOTHYROXINE 75 MCG TAB PO SCH (05:57)
[2019-02-26] MEDS: ROPIVACAINE 250 MG, HYDROMORPHONE (PF) 5 MG in SODIUM CHLORIDE 0.9% 200 ML EPIDURAL PRN (07:10)
[2019-02-26] MEDS: LOSARTAN 50 MG TAB PO SCH (07:12)
[2019-02-26] MEDS: FAMOTIDINE 20 MG TAB PO SCH ×2 (07:13→20:34)
[2019-02-26] MEDS: HEPARIN SODIUM,PORCINE 5,000 UNIT/ML 1 ML VIAL SQ SCH ×2 (07:14→20:34)
--- NOTE | 2019-02-26 07:50 | P.PN ---
Progress Note - Text 02/26 720am 78-year-old male status post rib fractures, was treated with thoracic epidural catheter for pain control. Patient has epidural solution running at 6 mL an hour and has no pain at rest. Patient does complain of pain when he is moved around. No motor or sensory deficits noted. I didn't think it was necessary to increase the rate to 6 mL an hour as he was comfortable with no movement.
--- NOTE | 2019-02-26 08:34 | XR ---
EXAMINATION TYPE: XR chest 1V DATE OF EXAM: 02/26/2019 COMPARISON: Prior chest x-ray 02/25/[address] 02/24/2019 HISTORY: Pneumothorax, rib fractures TECHNIQUE: Single frontal view of the chest is obtained. FINDINGS: Technique is apical lordotic. Cardiac mediastinal silhouette shows a similar appearance ac counting for differences in technique. Linear increased attenuation of the lung bases likely reflect subsegmental atelectatic change. No sizable pneumothorax or pleural effusion is evident. Rib fracture s not seen definitively on plain film. Subcutaneous emphysema seen in the neck and over the upper rig ht chest. IMPRESSION: Probable subsegmental basilar atelectatic change.
--- NOTE | 2019-02-26 09:57 | P.PN ---
Subjective Progress Note Date: 02/26/19 On today's evaluation, the patient is being seen in follow-up on 02/26/2019. He is using incentive spirometer. He is pulling approximately 1000 and his incentive spirometer. His chest x-ray from today shows small lung volumes, segmental atelectatic changes in lung bases. He is still on epidural Dilaudid at 6 mL an hour. He also has bupivacaine. Hemoglobin is stable. No altered mentation. No headaches. Anesthesia is managing his medication changes and level is around 2 of 10 when he is at rest and the pain gets worse when he moves. Breath sounds are quite diminished in the lung bases bilaterally. No fever or chills. He is on room air oxygen pulse oxing above 90%. No hemoptysis. No pleurisy. Objective - Vital Signs Vital signs: Vital Signs Temp 98.2 F 02/26/19 07:00 Pulse 67 02/26/19 07:00 Resp 16 02/26/19 07:00 BP 144/74 02/26/19 07:00 Pulse Ox 94 L 02/26/19 07:00 Intake & Output 02/25/19 02/26/19 02/26/19 18:59 06:59 18:59 Intake Total 600 480 Output Total 400 Balance 600 80 Intake: IV 600 Intake, IV Titration 240 Amount Lactated Ringers 1,000 ml 240 @ 20 mls/hr IV .Q24H [facility] Rx#:[id number] Oral 240 Output: Urine 400 Other: Voiding Method Urinal Urinal Urinal # Voids 0 1 - Exam GENERAL: Well-developed in no acute distress. Head exam was generally normal. There was no scleral icterus or corneal arcus. Mucous membranes were moist. Neck was supple and without jugular venous distension, thyromegaly, or carotid bruits. Carotids were easily palpable bilaterally. There was no adenopathy. HEENT: Hard of hearing. No sclera icterus. Extraocular movements grossly intact. Moist buccal mucosa. Head is atraumatic, normocephalic. No nasal drainage. NECK: Supple without lymphadenopathy. CHEST: Non-labored respirations and equal bilateral excursions. on 3L NC. No chest wall deformity. The patient has some soreness to palpation over the lateral chest area bilaterally. Breath sounds are equal and symmetrical There are significantly diminished in the lung bases bilaterally. There is some few crackles. CARDIOVASCULAR: Regular rate with regular rhythm. Palpable 2+ radial pulses. ABDOMEN: Soft. Nondistended. Nontender. MUSCULOSKELETAL: No clubbing, cyanosis or edema. NEUROLOGIC: No focal or lateralizing signs. Cranial nerves II through XII grossly intact. PSYCH: Appropriate affect. Alert and oriented to person, place and time. SKIN: Well perfused. Good skin turgor. Multiple abrasions to bilateral lower extremities. - Labs CBC & Chem 7: 02/25/19 06:33 02/24/19 15:39 Assessment and Plan Plan: 1 traumatic fall secondary to falling from a ladder, 10 feet elevation 2 traumatic bilateral rib fractures without signs of any flail chest. 3 muscular skeletal chest wall pain currently epidural bupivacaine and Dilaudid for pain control. The patient is still on pain control and is receiving Dilaudid 6 mL an hour and his epidural catheter along with bupivacaine. He is using incentive spirometer. His bowling 1000 on his I asked. Repeat chest x- ray showed no evidence of any pneumothorax on today's evaluation. There is some atelectatic changes in lung bases. 4 bilateral right-sided rib fracture 5 small posterior hematoma formation posterior today sternum, secondary to trauma. 6 tiny right-sided pneumothorax, not causing any respiratory distress or hemodynamic instability 7 pulmonary contusion 8 chronic vertigo 9 hypertension 10 hyperlipidemia Plan Continue epidural Dilaudid and bupivacaine for pain control. Incentive spi rometer. DVT and GI prophylaxis. Monitor hemoglobin. Resume all medications. Early mobility. Repeat chest x-ray in a.m. We'll continue to follow.
--- NOTE | 2019-02-26 12:43 | P.PN ---
<Angy Rodriguez A - Last Filed: 02/26/19 12:33> Subjective Progress Note Date: 02/26/19 CHIEF COMPLAINT: s/p fall HISTORY OF PRESENT ILLNESS: Patient examined this morning at the bedside. Patient denies pain at this time. Epidural is infusing. Patient is tolerating diet. Denies nausea or vomiting. Patient reports he has not been out of bed yet. Repeat chest x-ray reveals probable subsegmental basilar atelectasis. No sizable pneumothorax. PHYSICAL EXAM: VITAL SIGNS: Reviewed GENERAL: Well-developed in no acute distress. HEENT: Hard of hearing. No sclera icterus. Extraocular movements grossly intact. Moist buccal mucosa. Head is atraumatic, normocephalic. No nasal drainage. NECK: Supple without lymphadenopathy. CHEST: Non-labored respirations and equal bilateral excursions. on 2L NC. CARDIOVASCULAR: Regular rate with regular rhythm. Palpable 2+ radial pulses. ABDOMEN: Soft. Nondistended. Nontender. MUSCULOSKELETAL: No clubbing, cyanosis or edema. NEUROLOGIC: No focal or lateralizing signs. Cranial nerves II through XII gr ossly intact. PSYCH: Appropriate affect. Alert and oriented to person, place and time. SKIN: Well perfused. Good skin turgor. Multiple abrasions to bilateral lower extremities. ASSESSMENT: 1. Trauma, s/p fall from ladder, approximately 10 feet, secondary to pre- existing chronic vertigo 2. Multiple bilateral rib fractures 3. Small right pneumothorax 4. Pulmonary contusions 5. Chronic vertigo PLAN: 1. Continue epidural. Recommend discontinuing tomorrow (day 3) 2. Continue diet as tolerated 3. Pulmonary following. Appreciate recommendations. 4. Incentive spirometry encouraged 5. Spoke with patient and nursing regarding increasing activity. Patient must be out of bed today to prevent complications from his injuries. PT OT on cons ult. 6. Recommend workup for chronic vertigo. Patient reports not seeing shirt bander in over 12 years Nurse practitioner note has been reviewed by physician. Signing provider agrees with the documented findings, assessment, and plan of care. Objective - Vital Signs Vital signs: Vital Signs Temp 98.2 F 02/26/19 07:00 Pulse 67 02/26/19 07:00 Resp 16 02/26/19 07:00 BP 144/74 02/26/19 07:00 Pulse Ox 94 L 02/26/19 07:00 Intake & Output 02/25/19 02/26/19 02/26/19 18:59 06:59 18:59 Intake Total 600 480 Output Total 400 Balance 600 80 Intake: IV 600 Intake, IV Titration 240 Amount Lactated Ringers 1,000 ml 240 @ 20 mls/hr IV .Q24H [facility] Rx#:[id number] Oral 240 Output: Urine 400 Other: Voiding Method Urinal Urinal Urinal # Voids 0 1 - Labs CBC & Chem 7: 02/25/19 06:33 02/24/19 15:39 Assessment and Plan (1) Vertigo Current Visit: Yes Status: Acute Code(s): R42 - DIZZINESS AND GIDDINESS SNOMED Code(s): 774452635 (2) Pulmonary contusion Current Visit: Yes Status: Acute Code(s): S27.329A - CONTUSION OF LUNG, UNSPECIFIED, INITIAL ENCOUNTER SNOMED Code(s): 781110189 (3) Fall Current Visit: Yes Status: Acute Code(s): W19.XXXA - UNSPECIFIED FALL, INITIAL ENCOUNTER SNOMED Code(s): 4000845 (4) Multiple fractures of ribs of both sides Current Visit: Yes Status: Acute Code(s): S22.43XA - MULTIPLE FRACTURES OF RIBS, BILATERAL, INIT FOR CLOS FX SNOMED Code(s): 8714840 (5) Pneumothorax Current Visit: Yes Status: Acute Code(s): J93.9 - PNEUMOTHORAX, UNSPECIFIED SNOMED Code(s): 56212830 <Bess Carreno N - Last Filed: 02/26/19 22:43> Subjective is at bedside. He reports chest pain is improved with his rib fractures and epidural. No surgical intervention. Objective - Vital Signs Vital signs: Vital Signs Temp 98.0 F 02/26/19 19:25 Pulse 64 02/26/19 19:25 Resp 16 02/26/19 19:25 BP 124/70 02/26/19 19:25 Pulse Ox 93 L 02/26/19 19:25 Intake & Output 02/26/19 02/26/19 02/27/19 06:59 18:59 06:59 Intake Total 480 60.7 Output Total 400 Balance 80 60.7 Intake: Intake, IV Titration 240 60.7 Amount Lactated Ringers 1,000 ml 240 @ 20 mls/hr IV .Q24H [facility] Rx#:[id number] Ropivacaine 250 mg 60.7 Hydromorphone (Pf) 5 mg In Sodium Chloride 0.9% 200 ml @ Per Protocol EPIDURAL .Q0M PRN Rx#: [id number] Oral 240 Output: Urine 400 Other: Voiding Method Urinal Urinal Urinal # Voids 1 2 - Labs CBC & Chem 7: 02/25/19 06:33 02/24/19 15:39
[2019-02-26] MEDS: KETOROLAC 30 MG/ML 1 ML VIAL IVP SCH ×3 (13:11→22:54)
--- NOTE | 2019-02-26 15:12 | P.PN ---
Subjective Progress Note Date: 02/26/19 This is a 78-year-old male patient of Dr. Moises Urbina with past medical history of hypertension, hyperlipidemia, hypothyroidism, vertigo. Patient will was apparently climbing a ladder to get onto his roof at about 10 feet in height and his foot got caught as well as there was a wind along with his chronic vertigo, patient had a fall landing on his left posterior shoulder. He came into [facility] emergency center for evaluation. He did not have a loss of consciousness or head injury. Initial pulse ox was 91%, otherwise hemodynamically stable. EKG was a sinus bradycardia with no acute ST- T wave changes. WBC 11.5, hemoglobin 14.9. Electrolytes within normal limits, blood sugar 101, BUN 26 creatinine 1.01. Liver function tests within normal limits. CAT scan of the brain and cervical spine showed no acute process. Chest x-ray showed suspected small right pneumothorax and peripheral reticular opacities may represent pulmonary contusions. Widened mediastinum. Correlate for thoracic injury. CAT scan of the chest abdomen and pelvis revealed bilateral rib fractures with trace right pneumothorax. Left renal cyst with fluid infiltration into the retroperitoneal fat raises possibility of ruptured cyst. Infrarenal abdominal aortic aneurysm measuring 4.2 cm. Minimally displaced right anterior first rib fracture, fracture through the second costochondral junction and anterior third rib. Minimal displaced fractures through the left third fourth and fifth anterior ribs. Patient was admitted to the [facility] floor under the care of Dr. Carreno. Patient is status post epidural pain pump. 02/26: Admission has been switched over to internal medicine. Patient is followed by general surgery and Dr. Altman. Patient continues to have pain and epidural is in place. Most likely this will be discontinued by tomorrow. He is using incentive spirometer 1000. Repeat chest x-ray will be ordered. Due to continued pain, scheduled Toradol will be added and vitamin D. Patient has been encouraged to get out of bed. Patient has been afebrile, heart rate 67, blood pressure 144/74. Pulse ox 94% on 2 L and down to 88 with activity. Patient does qualify for home oxygen which will be addressed tomorrow. Anticipate possible discharge by tomorrow. Review of Systems Constitutional: Denies chills, Denies fatigue, Denies fever, Denies poor appetite, Denies weakness Eyes: denies blurred vision, denies pain Ears, nose, mouth and throat: Reports vertigo, Denies headache, Denies nasal congestion, Denies nasal discharge Cardiovascular: Reports chest pain-continue, Denies shortness of breath, Denies syncope Respiratory: Denies congestion, Denies cough, Denies cough with sputum, Denies dyspnea, Denies excessive sputum, Denies hemoptysis, Denies home oxygen, Denies respiratory infections, Denies wheezing Gastrointestinal: Denies abdominal pain, Denies diarrhea, Denies nausea, Denies vomiting Genitourinary: Denies dysuria, Denies urinary frequency, Denies urinary hesitancy, Denies urinary retention Musculoskeletal: Reports gait dysfunction, Denies myalgias Integumentary: Reports wounds, Denies pruritus, Denies rash Neurological: Reports vertigo, Denies change in mentation, Denies change in speech, Denies numbness, Denies weakness Psychiatric: Denies anxiety, Denies depression Endocrine: Denies fatigue, Denies weight change Objective - Vital Signs Vital signs: Vital Signs Temp 98.2 F 02/26/19 07:00 Pulse 67 02/26/19 07:00 Resp 16 02/26/19 07:00 BP 144/74 02/26/19 07:00 Pulse Ox 94 L 02/26/19 07:00 Intake & Output 02/25/19 02/26/19 02/26/19 18:59 06:59 18:59 Intake Total 600 480 Output Total 400 Balance 600 80 Intake: IV 600 Intake, IV Titration 240 Amount Lactated Ringers 1,000 ml 240 @ 20 mls/hr IV .Q24H [facility] Rx#:[id number] Oral 240 Output: Urine 400 Other: Voiding Method Urinal Urinal Urinal # Voids 0 1 - Exam Gen: This is a 78-year-old male. He is resting in chair. Epidural pain pump in place. HEENT: Head is atraumatic, normocephalic. Pupils equal, round. Sclerae is anicteric. NECK: Supple. No JVD. No lymphadenopathy. No thyromegaly. LUNGS: Clear to auscultation. No wheezes or rhonchi. No intercostal retractions. No subcutaneous emphysema. HEART: Regular rate and rhythm. No murmur. ABDOMEN: Soft. Bowel sounds are present. No masses. No tenderness. EXTREMITIES: No pedal edema. Abrasions to the left pretibial area. No cellulitis. NEUROLOGICAL: Patient is awake, alert and oriented x3. Cranial nerves 2 through 12 are grossly intact. - Labs CBC & Chem 7: 02/25/19 06:33 02/24/19 15:39 Assessment and Plan Plan: 1. Trauma from fall off ladder approximately 10 feet sustaining multiple bilateral rib fractures status post epidural pain pump. DuoNeb treatments 4 times daily and as needed, incentive spirometry. Orthostatic vital signs ordered. Dilaudid as needed for pain as well. Epidural pain pump to be discontinued tomorrow. Toradol scheduled around the clock. 2. Chronic vertigo. 3. Small right pneumothorax. 4. Pulmonary contusions. Consult with pulmonary medicine. 5. Shoulder pain, probable contusion. X-ray ordered. 6. Hypertension. Continue losartan 50 mg daily 7. Hyperlipidemia. Continue statin. 8. Hypothyroidism. Continue levothyroxine 75 g daily. 9. DVT prophylaxis. Heparin subcu every 12 hours. 10. GI prophylaxis. Pepcid. 11. Possible chronic hypoxic respiratory failure requiring home O2. We will plan to recheck oxygen levels tomorrow. Continue incentive spirometry. Discharge plan: Home with [facility] in 24-48 hours. Impression and plan of care have been directed as dictated by the signing physician. She [place] nurse practitioner acting as scribe for signing physician.
[2019-02-26] MEDS: LACTATED RINGERS 1,000 ML IV SCH (17:15)
[2019-02-26] MEDS: ATORVASTATIN 10 MG TAB PO SCH (20:34)
[2019-02-27] MEDS ORDERED: KETOROLAC 30 MG/ML 1 ML VIAL ONE (05:00)
[2019-02-27] MEDS ORDERED: LEVOTHYROXINE 75 MCG TAB ONE (05:00)
[2019-02-27] MEDS: KETOROLAC 30 MG/ML 1 ML VIAL IVP SCH ×2 (07:48→11:19)
[2019-02-27] MEDS: LEVOTHYROXINE 75 MCG TAB PO SCH (07:49)
[2019-02-27] MEDS: LOSARTAN 50 MG TAB PO SCH (07:57)
[2019-02-27] MEDS: CHOLECALCIFEROL 1,000 UNIT TAB PO SCH (07:57)
[2019-02-27] MEDS: FAMOTIDINE 20 MG TAB PO SCH ×2 (07:57→20:09)
[2019-02-27] MEDS: HEPARIN SODIUM,PORCINE 5,000 UNIT/ML 1 ML VIAL SQ SCH ×2 (07:58→20:09)
[2019-02-27] MEDS: ROPIVACAINE 250 MG, HYDROMORPHONE (PF) 5 MG in SODIUM CHLORIDE 0.9% 200 ML EPIDURAL PRN (08:18)
--- NOTE | 2019-02-27 12:33 | P.PN ---
<Angy Rodriguez A - Last Filed: 02/27/19 12:30> Subjective Progress Note Date: 02/27/19 CHIEF COMPLAINT: s/p fall HISTORY OF PRESENT ILLNESS: Patient examined this morning at the bedside. Patient reports his pain is tolerable. Epidural is infusing. Patient is tolerating diet. Denies nausea or vomiting. Patient reports he ambulated in the hallway yesterday and was up in the chair. Patient has not been OOB yet today. PHYSICAL EXAM: VITAL SIGNS: Reviewed GENERAL: Well-developed in no acute distress. HEENT: Hard of hearing. No sclera icterus. Extraocular movements grossly intact. Moist buccal mucosa. Head is atraumatic, normocephalic. No nasal drainage. NECK: Supple without lymphadenopathy. CHEST: Non-labored respirations and equal bilateral excursions. on 2L NC. CARDIOVASCULAR: Regular rate with regular rhythm. Palpable 2+ radial pulses. ABDOMEN: Soft. Nondistended. Nontender. MUSCULOSKELETAL: No clubbing, cyanosis or edema. NEUROLOGIC: No focal or lateralizing signs. Cranial nerves II through XII grossly intact. PSYCH: Appropriate affect. Alert and oriented to person, place and time. SKIN: Well perfused. Good skin turgor. Multiple abrasions to bilateral lower extremities. ASSESSMENT: 1. Trauma, s/p fall from ladder, approximately 10 feet, secondary to pre- existing chronic vertigo 2. Multiple bilateral rib fractures 3. Small right pneumothorax 4. Pulmonary contusions 5. Chronic vertigo PLAN: 1. Recommend discontinuing epidural today. Continue IV Toradol. 2. Continue diet as tolerated 3. Pulmonary following. Appreciate recommendations. 4. Incentive spirometry encouraged 5. Increase activity as tolerated Nurse practitioner note has been reviewed by physician. Signing provider agrees with the documented findings, assessment, and plan of care. Objective - Vital Signs Vital signs: Vital Signs Temp 97.9 F 02/27/19 07:00 Pulse 62 02/27/19 07:00 Resp 16 02/27/19 07:25 BP 146/74 02/27/19 07:00 Pulse Ox 96 02/27/19 07:00 Intake & Output 02/26/19 02/27/19 02/27/19 18:59 06:59 18:59 Intake Total 60.7 74.783 Balance 60.7 74.783 Intake: Intake, IV Titration 60.7 74.783 Amount Ropivacaine 250 mg 60.7 74.783 Hydromorphone (Pf) 5 mg In Sodium Chloride 0.9% 200 ml @ Per Protocol EPIDURAL .Q0M PRN Rx#: [id number] Other: Voiding Method Urinal Urinal Urinal # Voids 2 - Labs CBC & Chem 7: 02/25/19 06:33 02/24/19 15:39 Assessment and Plan (1) Vertigo Current Visit: Yes Status: Acute Code(s): R42 - DIZZINESS AND GIDDINESS SNOMED Code(s): 127595311 (2) Pulmonary contusion Current Visit: Yes Status: Acute Code(s): S27.329A - CONTUSION OF LUNG, UNSPECIFIED, INITIAL ENCOUNTER SNOMED Code(s): 685996076 (3) Fall Current Visit: Yes Status: Acute Code(s): W19.XXXA - UNSPECIFIED FALL, INITIAL ENCOUNTER SNOMED Code(s): 2310411 (4) Multiple fractures of ribs of both sides Current Visit: Yes Status: Acute Code(s): S22.43XA - MULTIPLE FRACTURES OF RIBS, BILATERAL, INIT FOR CLOS FX SNOMED Code(s): 5855397 (5) Pneumothorax Current Visit: Yes Status: Acute Code(s): J93.9 - PNEUMOTHORAX, UNSPECIFIED SNOMED Code(s): 46925693 <Bess Carreno N - Last Filed: 02/27/19 17:53> Subjective Recommend oral ibuprofen for transition to home. Repeat Chest xray prior to discharge. Otherwise, clear from trauma for discharge when medically stable. Objective - Vital Signs Vital signs: Vital Signs Temp 98.0 F 02/27/19 15:00 Pulse 83 02/27/19 17:26 Resp 18 02/27/19 17:26 BP 108/68 02/27/19 17:26 Pulse Ox 91 L 02/27/19 17:26 Intake & Output 02/26/19 02/27/19 02/27/19 18:59 06:59 18:59 Intake Total 60.7 74.783 Balance 60.7 74.783 Intake: Intake, IV Titration 60.7 74.783 Amount Ropivacaine 250 mg 60.7 74.783 Hydromorphone (Pf) 5 mg In Sodium Chloride 0.9% 200 ml @ Per Protocol EPIDURAL .Q0M [facility]N Rx#: [id number] Other: Voiding Method Urinal Urinal Urinal # Voids 2 2 - Labs CBC & Chem 7: 02/25/19 06:33 02/24/19 15:39
[2019-02-27] MEDS ORDERED: LIDOCAINE 5% PATCH TOPICAL SCH (12:45)
--- NOTE | 2019-02-27 13:40 | P.PN ---
Subjective Progress Note Date: 02/27/19 Principal diagnosis: Traumatic fall, musculoskeletal chest wall pain, right-sided rib fractures On 02/27/2019 patient seen in follow-up on medical surgical floor. he is awake and alert, in no acute distress, still has discomfort across his chest with deep breathing and moving, she remains on epidural drip at 5 ML per hour, however on today's exam he seems to be in less distress, epidural catheter is scheduled to be discontinued sometime this afternoon, patient will be switched to oral pain medications, in addition to pain patches, he is using his incentive spirometer, he is achieving 1500 on the today, lung sounds are clear, diminished at the bases, no rhonchi or wheezing. Vital signs are stable, no acute events overnight. Chest x-ray is pending. No fever or chills. Patient tolerated ambulation. Objective - Vital Signs Vital signs: Vital Signs Temp 97.9 F 02/27/19 07:00 Pulse 62 02/27/19 07:00 Resp 16 02/27/19 07:25 BP 146/74 02/27/19 07:00 Pulse Ox 96 02/27/19 07:00 Intake & Output 02/26/19 02/27/19 02/27/19 18:59 06:59 18:59 Intake Total 60.7 74.783 Balance 60.7 74.783 Intake: Intake, IV Titration 60.7 74.783 Amount Ropivacaine 250 mg 60.7 74.783 Hydromorphone (Pf) 5 mg In Sodium Chloride 0.9% 200 ml @ Per Protocol EPIDURAL .Q0M PRN Rx#: [id number] Other: Voiding Method Urinal Urinal Urinal # Voids 2 - Exam GENERAL EXAM: Alert, active, pleasant, 78-year-old white male, on 2 L of oxygen comfortable in no apparent distress. HEAD: Normocephalic/atraumatic. EYES: Normal reaction of pupils, equal size. Conjunctiva pink, sclera white. NOSE: Clear with pink turbinates. THROAT: No erythema or exudates. NECK: No masses, no JVD, no thyroid enlargement, no adenopathy. CHEST: No chest wall deformity. Symmetrical expansion. LUNGS: Equal air entry with no crackles, wheeze, rhonchi or dullness. CVS: Regular rate and rhythm, normal S1 and S2, no gallops, no murmurs, no rubs ABDOMEN: Soft, nontender. No hepatosplenomegaly, normal bowel sounds, no guarding or rigidity. EXTREMITIES: No clubbing, no edema, no cyanosis, 2+ pulses and upper and lower extremities. MUSCULOSKELETAL: Muscle strength and tone normal. SPINE: No scoliosis or deformity. Epidural catheter is in place, an epidural is infusing at a rate of 5 ML per hour SKIN: No rashes CENTRAL NERVOUS SYSTEM: Alert and oriented -3. No focal deficits, tone is normal in all 4 extremities. PSYCHIATRIC: Alert and oriented -3. Appropriate affect. Intact judgment and insight. - Labs CBC & Chem 7: 02/25/19 06:33 02/24/19 15:39 Assessment and Plan Plan: Assessment: 1 traumatic fall secondary to falling from a ladder, 10 feet elevation 2 traumatic bilateral rib fractures without signs of any flail chest. 3 muscular skeletal chest wall pain currently epidural bupivacaine and Dilaudid for pain control. The patient is still on pain control and is receiving Dilaudid 6 mL an hour and his epidural catheter along with bupivacaine. He is using incentive spirometer. His bowling 1000 on his I asked. Repeat chest x- ray showed no evidence of any pneumothorax on today's evaluation. There is some atelectatic changes in lung bases. 4 bilateral right-sided rib fracture 5 small posterior hematoma formation posterior today sternum, secondary to trauma. 6 tiny right-sided pneumothorax, not causing any respiratory distress or hemodynamic instability 7 pulmonary contusion 8 chronic vertigo 9 hypertension 10 hyperlipidemia Plan: Continue deep breathing and coughing exercises, encourage ambulation, epidural to be discontinued this afternoon, patient will be switched to oral medications, signs are stable, no acute complaints, continue GI and DVT prophylaxis, awaiting chest x-ray this afternoon. Possible discharge home in the next 24 hours I performed a history & physical examination of the patient and discussed their management with my nurse practitioner, Allie Soares. I reviewed the nurse practitioner's note and agree with the documented findings and plan of care. Lung sounds are positive for diminishedv breath sounds. The findings and the impression was discussed with the patient. I attest to the documentation by the nurse practitioner. Time with Patient: Less than 30
[2019-02-27] MEDS: LIDOCAINE 5% PATCH TOPICAL SCH (13:54)
[2019-02-27] MEDS: HYDROcodone/APAP 5-325MG 1 EACH TAB PO PRN ×2 (13:56→20:12)
--- NOTE | 2019-02-27 14:36 | XR ---
EXAMINATION TYPE: XR chest 2V DATE OF EXAM: 02/27/2019 COMPARISON: Chest x-ray from yesterday and older studies. CT from 3 days ago. HISTORY: Shortness of breath, history of recent rib fractures. TECHNIQUE: Frontal and lateral views of the chest are obtained. FINDINGS: There is chronic parenchymal changes with persistent left basilar opacity. The cardiac si lhouette size remains enlarged. No new focal airspace opacity, pleural effusion, or pneumothorax. Th e osseous structures are demineralized. Old posterior left third rib fracture is seen. Additional rib fractures seen better on CT versus x-ray. IMPRESSION: Cardiomegaly and chronic parenchymal changes with left basilar consolidation and/or atel ectasis. No new infiltrate or sizable pneumothorax.
[2019-02-27] MEDS: IBUPROFEN 800 MG TAB PO SCH ×2 (16:30→20:09)
[2019-02-27] MEDS: LACTATED RINGERS 1,000 ML IV SCH (16:31)
--- NOTE | 2019-02-27 16:37 | P.PN ---
Subjective Progress Note Date: 02/27/19 This is a 78-year-old male patient of Dr. Moises Urbina with past medical history of hypertension, hyperlipidemia, hypothyroidism, vertigo. Patient will was apparently climbing a ladder to get onto his roof at about 10 feet in height and his foot got caught as well as there was a wind along with his chronic vertigo, patient had a fall landing on his left posterior shoulder. He came into [facility] emergency center for evaluation. He did not have a loss of consciousness or head injury. Initial pulse ox was 91%, otherwise hemodynamically stable. EKG was a sinus bradycardia with no acute ST- T wave changes. WBC 11.5, hemoglobin 14.9. Electrolytes within normal limits, blood sugar 101, BUN 26 creatinine 1.01. Liver function tests within normal limits. CAT scan of the brain and cervical spine showed no acute process. Chest x-ray showed suspected small right pneumothorax and peripheral reticular opacities may represent pulmonary contusions. Widened mediastinum. Correlate for thoracic injury. CAT scan of the chest abdomen and pelvis revealed bilateral rib fractures with trace right pneumothorax. Left renal cyst with fluid infiltration into the retroperitoneal fat raises possibility of ruptured cyst. Infrarenal abdominal aortic aneurysm measuring 4.2 cm. Minimally displaced right anterior first rib fracture, fracture through the second costochondral junction and anterior third rib. Minimal displaced fractures through the left third fourth and fifth anterior ribs. Patient was admitted to the [facility] floor under the care of Dr. Carreno. Patient is status post epidural pain pump. 02/26: Admission has been switched over to internal medicine. Patient is followed by general surgery and Dr. Altman. Patient continues to have pain and epidural is in place. Most likely this will be discontinued by tomorrow. He is using incentive spirometer 1000. Repeat chest x-ray will be ordered. Due to continued pain, scheduled Toradol will be added and vitamin D. Patient has been encouraged to get out of bed. Patient has been afebrile, heart rate 67, blood pressure 144/74. Pulse ox 94% on 2 L and down to 88 with activity. Patient does qualify for home oxygen which will be addressed tomorrow. Anticipate possible discharge by tomorrow. 02/27: Patient continues to have pain to his chest wall and we will plan to discontinue epidural and add lidocaine patches 1 to each side of his anterior chest in one to his back/thoracic area and [place] to be used versus Dilaudid and IV Toradol changed to scheduled ibuprofen with anticipation of discharge tomorrow. He has been afebrile, heart rate 69, blood pressure 143/75, pulse ox at rest 90, with exercise 94%. No need for home oxygen. Repeat chest x-ray reveals cardiomegaly and chronic parenchymal changes with left basilar consolidation and/or atelectasis. No new infiltrate or sizable pneumothorax. Patient encouraged to increase use of incentive spirometry and increase activity with plan for discharge tomorrow. Patient would like to be discharged by 11 AM. Review of Systems Constitutional: Denies chills, Denies fatigue, Denies fever, Denies poor appetite, Denies weakness Ears, nose, mouth and throat: Reports vertigo, Denies headache, Denies nasal congestion, Denies nasal discharge Cardiovascular: Reports chest pain-continue, Denies shortness of breath, Denies syncope Respiratory: Denies congestion, Denies cough, Denies cough with sputum, Denies dyspnea, Denies excessive sputum, Denies hemoptysis, Denies home oxygen, Denies respiratory infections, Denies wheezing Gastrointestinal: Denies abdominal pain, Denies diarrhea, Denies nausea, Denies vomiting Genitourinary: Denies dysuria, Denies urinary frequency, Denies urinary hesitancy, Denies urinary retention Musculoskeletal: Reports gait dysfunction, Denies myalgias Integumentary: Reports wounds, Denies pruritus, Denies rash Neurological: Reports vertigo, Denies change in mentation, Denies change in speech, Denies numbness, Denies weakness Psychiatric: Denies anxiety, Denies depression Endocrine: Denies fatigue, Denies weight change Objective - Vital Signs Vital signs: Vital Signs Temp 97.9 F 02/27/19 07:00 Pulse 62 02/27/19 07:00 Resp 16 02/27/19 07:25 BP 146/74 02/27/19 07:00 Pulse Ox 96 02/27/19 07:00 Intake & Output 02/26/19 02/27/19 02/27/19 18:59 06:59 18:59 Intake Total 60.7 74.783 Balance 60.7 74.783 Intake: Intake, IV Titration 60.7 74.783 Amount Ropivacaine 250 mg 60.7 74.783 Hydromorphone (Pf) 5 mg In Sodium Chloride 0.9% 200 ml @ Per Protocol EPIDURAL .Q0M PRN Rx#: [id number] Other: Voiding Method Urinal Urinal Urinal # Voids 2 - Exam Gen: This is a 78-year-old male. He is resting in chair. Epidural pain pump in place. HEENT: Head is atraumatic, normocephalic. Pupils equal, round. Sclerae is anicteric. NECK: Supple. No JVD. No lymphadenopathy. No thyromegaly. LUNGS: Clear to auscultation. No wheezes or rhonchi. No intercostal retractions. No subcutaneous emphysema. HEART: Regular rate and rhythm. No murmur. Chest wall tenderness. ABDOMEN: Soft. Bowel sounds are present. No masses. No tenderness. EXTREMITIES: No pedal edema. Abrasions to the left pretibial area. No cellulitis. NEUROLOGICAL: Patient is awake, alert and oriented x3. Cranial nerves 2 through 12 are grossly intact. - Labs CBC & Chem 7: 02/25/19 06:33 02/24/19 15:39 Assessment and Plan Plan: 1. Trauma from fall off ladder approximately 10 feet sustaining multiple bilateral rib fractures status post epidural pain pump. DuoNeb treatments 4 times daily and as needed, incentive spirometry. Orthostatic vital signs ordered. Epidural pain pump to be discontinued this afternoon. Toradol transitioned to oral Motrin scheduled 3 times daily, [place] as needed and avoid use of Dilaudid. Increase activity and incentive spirometry. 2. Chronic vertigo. 3. Small right pneumothorax. 4. Pulmonary contusions. Consult with pulmonary medicine. 5. Shoulder pain, probable contusion. X-ray ordered. 6. Hypertension. Continue losartan 50 mg daily 7. Hyperlipidemia. Continue statin. 8. Hypothyroidism. Continue levothyroxine 75 g daily. 9. DVT prophylaxis. Heparin subcu every 12 hours. 10. GI prophylaxis. Pepcid. 11. Possible chronic hypoxic respiratory failure requiring home O2 ruled out. Continue incentive spirometry. Discharge plan: Home with [facility] morning. Impression and plan of care have been directed as dictated by the signing physician. She Fulton nurse practitioner acting as scribe for signing physician.
--- NOTE | 2019-02-27 18:08 | P.PN ---
Progress Note - Text Date: 02/27/2019 Time:[] The patient is status post, rib fractures. The patient has a thoracic epidural in place for pain control. The epidural was not infusing and is going to be DC'd this evening per the service. The patient has no complaints of nausea vomiting or headache. The patient does not complain of any lower extremity numbness or weakness.
[2019-02-27] MEDS: ATORVASTATIN 10 MG TAB PO SCH (20:09)
[2019-02-28] MEDS: HYDROcodone/APAP 5-325MG 1 EACH TAB PO PRN ×2 (00:48→05:20)
[2019-02-28 01:16] VITALS: PULSE 63
[2019-02-28] MEDS: LEVOTHYROXINE 75 MCG TAB PO SCH (05:20)
[2019-02-28 07:43] VITALS: BP 153/70; RESP 16; TEMP 98
[2019-02-28] MEDS: LOSARTAN 50 MG TAB PO SCH (08:31)
[2019-02-28] MEDS: LIDOCAINE 5% PATCH TOPICAL SCH (08:31)
[2019-02-28] MEDS: FAMOTIDINE 20 MG TAB PO SCH (08:31)
[2019-02-28] MEDS: HEPARIN SODIUM,PORCINE 5,000 UNIT/ML 1 ML VIAL SQ SCH (08:31)
[2019-02-28] MEDS: CHOLECALCIFEROL 1,000 UNIT TAB PO SCH (08:31)
[2019-02-28] MEDS: IBUPROFEN 800 MG TAB PO SCH (08:31)
[2019-02-28] MEDS ORDERED: LIDOCAINE 5% PATCH TOPICAL SCH (09:00)
--- NOTE | 2019-02-28 13:45 | P.PN ---
Subjective Progress Note Date: 02/28/19 CHIEF COMPLAINT: s/p fall HISTORY OF PRESENT ILLNESS: Patient examined this morning at the bedside. Patient reports his pain is tolerable. Patient is tolerating diet. Denies nausea or vomiting. Vital signs are stable. PHYSICAL EXAM: VITAL SIGNS: Reviewed GENERAL: Well-developed in no acute distress. HEENT: Hard of hearing. No sclera icterus. Extraocular movements grossly intact. Moist buccal mucosa. Head is atraumatic, normocephalic. No nasal drainage. NECK: Supple without lymphadenopathy. CHEST: Non-labored respirations and equal bilateral excursions. on 2L NC. CARDIOVASCULAR: Regular rate with regular rhythm. Palpable 2+ radial pulses. ABDOMEN: Soft. Nondistended. Nontender. MUSCULOSKELETAL: No clubbing, cyanosis or edema. NEUROLOGIC: No focal or lateralizing signs. Cranial nerves II through XII grossly intact. PSYCH: Appropriate affect. Alert and oriented to person, place and time. SKIN: Well perfused. Good skin turgor. Multiple abrasions to bilateral lower extremities. ASSESSMENT: 1. Trauma, s/p fall from ladder, approximately 10 feet, secondary to pre- existing chronic vertigo 2. Multiple bilateral rib fractures 3. Small right pneumothorax 4. Pulmonary contusions 5. Chronic vertigo PLAN: 1. Pain control. Continue current regimen. 2. Continue diet as tolerated 3. Pulmonary following. Appreciate recommendations. 4. Incentive spirometry encouraged 5. Increase activity as tolerated 6. Patient is stable for discharge today from surgical standpoint when cleared by attending physician Nurse practitioner note has been reviewed by physician. Signing provider agrees with the documented findings, assessment, and plan of care. Objective - Vital Signs Vital signs: Vital Signs Temp 98 F 02/28/19 07:00 Pulse 63 02/28/19 07:00 Resp 16 02/28/19 07:00 BP 153/70 02/28/19 07:00 Pulse Ox 94 L 02/28/19 07:00 Intake & Output 02/27/19 02/28/19 02/28/19 18:59 06:59 18:59 Intake Total 74.783 200 Output Total 300 Balance 74.783 -100 Intake: Intake, IV Titration 74.783 Amount Ropivacaine 250 mg 74.783 Hydromorphone (Pf) 5 mg In Sodium Chloride 0.9% 200 ml @ Per Protocol EPIDURAL .Q0M PRN Rx#: [id number] Oral 200 Output: Urine 300 Other: Voiding Method Urinal Urinal # Voids 2 - Labs CBC & Chem 7: 02/25/19 06:33 02/24/19 15:39 Assessment and Plan (1) Vertigo Current Visit: Yes Status: Acute Code(s): R42 - DIZZINESS AND GIDDINESS SNOMED Code(s): 299140894 (2) Pulmonary contusion Current Visit: Yes Status: Acute Code(s): S27.329A - CONTUSION OF LUNG, UNSPECIFIED, INITIAL ENCOUNTER SNOMED Code(s): 455870391 (3) Fall Current Visit: Yes Status: Acute Code(s): W19.XXXA - UNSPECIFIED FALL, INITIAL ENCOUNTER SNOMED Code(s): 0311760 (4) Multiple fractures of ribs of both sides Current Visit: Yes Status: Acute Code(s): S22.43XA - MULTIPLE FRACTURES OF RIBS, BILATERAL, INIT FOR CLOS FX SNOMED Code(s): 1254561 (5) Pneumothorax Current Visit: Yes Status: Acute Code(s): J93.9 - PNEUMOTHORAX, UNSPECIFIED SNOMED Code(s): 97478984
--- NOTE | 2019-03-01 16:37 | P.DS ---
Providers Date of admission: 02/24/19 18:13 Expected date of discharge: 02/28/19 Attending physician: Leni Terrazas Consults: 02/24/19 18:13 Consult Physician Routine Consulting Provider: Trey Burnette Consult Reason/Comments: Multiple rib fractures, trace right pneumothorax Do you want consulting provider notified?: Yes Consult Physician Routine Consulting Provider: Bess Carreno Consult Reason/Comments: Trauma Do you want consulting provider notified?: Yes Consult to Anesthesia Routine Consulting Provider: Anesthesia,Services Consult Reason/Comments: Rib fractures Primary care physician: Moises Urbina [facility] Course: This is a 78-year-old male patient of Dr. Moises Uribna with past medical history of hypertension, hyperlipidemia, hypothyroidism, vertigo. Patient will was apparently climbing a ladder to get onto his roof at about 10 feet in height and his foot got caught as well as there was a wind along with his chronic vertigo, patient had a fall landing on his left posterior shoulder. He came into [facility] emergency center for evaluation. He did not have a loss of consciousness or head injury. Initial pulse ox was 91%, otherwise hemodynamically stable. EKG was a sinus bradycardia with no acute ST- T wave changes. WBC 11.5, hemoglobin 14.9. Electrolytes within normal limits, blood sugar 101, BUN 26 creatinine 1.01. Liver function tests within normal limits. CAT scan of the brain and cervical spine showed no acute process. Chest x-ray showed suspected small right pneumothorax and peripheral reticular opacities may represent pulmonary contusions. Widened mediastinum. Correlate for thoracic injury. CAT scan of the chest abdomen and pelvis revealed bilateral rib fractures with trace right pneumothorax. Left renal cyst with fluid infiltration into the retroperitoneal fat raises possibility of ruptured cyst. Infrarenal abdominal aortic aneurysm measuring 4.2 cm. Minimally displaced right anterior first rib fracture, fracture through the second costochondral junction and anterior third rib. Minimal displaced fractures through the left third fourth and fifth anterior ribs. [facility] under the care of Dr. Carreno. Patient is status post epidural pain pump. 02/26: Admission has been switched over to internal medicine. Patient is followed by general surgery and Dr. Altman. Patient continues to have pain and epidural is in place. Most likely this will be discontinued by tomorrow. He is using incentive spirometer 1000. Repeat chest x-ray will be ordered. Due to continued pain, scheduled Toradol will be added and vitamin D. Patient has been encouraged to get out of bed. Patient has been afebrile, heart rate 67, blood pressure 144/74. Pulse ox 94% on 2 L and down to 88 with activity. Patient does qualify for home oxygen which will be addressed tomorrow. Anticipate possible discharge by tomorrow. 02/27: Patient continues to have pain to his chest wall and we will plan to discontinue epidural and add lidocaine patches 1 to each side of his anterior chest in one to his back/thoracic area and [place] to be used versus Dilaudid and IV Toradol changed to scheduled ibuprofen with anticipation of discharge tomorrow. He has been afebrile, heart rate 69, blood pressure 143/75, pulse ox at rest 90, with exercise 94%. No need for home oxygen. Repeat chest x-ray reveals cardiomegaly and chronic parenchymal changes with left basilar consolidation and/or atelectasis. No new infiltrate or sizable pneumothorax. Patient encouraged to increase use of incentive spirometry and increase activity with plan for discharge tomorrow. Patient would like to be discharged by 11 AM. 02/28: Patient is afebrile, heart rate 63, blood pressure 153/70, pulse ox 93% on 2 L nasal cannula. Patient is eating well with good appetite. Pain is much improved today. He is encouraged to use incentive spirometry. The patient is anxious to be discharged. He states he still has a little cough with sputum production and azithromycin will be sent home with him. Patient will be sent home with [place] and start talking form has been completed and patient is in agreement with documented. Patient will be discharged home today in stable condition. Discharge diagnoses: 1. Trauma from fall off ladder approximately 10 feet sustaining multiple bilateral rib fractures status post epidural pain pump. 2. Chronic vertigo. 3. Small right pneumothorax. 4. Pulmonary contusions. 5. Shoulder pain, probable contusion. Tendinitis on x-ray, no fracture. 6. Hypertension. 7. Hyperlipidemia. 8. Hypothyroidism. 9. Possible chronic hypoxic respiratory failure ruled out. Transient low pulse ox. Discharge plan: Home with [facility] Impression and plan of care have been directed as dictated by the signing physician. She [place] nurse practitioner acting as scribe for signing physician. Patient Condition at Discharge: Good Plan - Discharge Summary Discharge Rx Participant: No New Discharge Prescriptions: New Cholecalciferol [Vitamin D3 (25 Mcg = 1000 Iu)] 2,000 unit PO DAILY tab Lidocaine 5% Patch [Lidoderm 5% Patch] 3 patch TOPICAL DAILY #21 patch Ibuprofen [Motrin] 800 mg PO TID PRN #90 tab PRN Reason: Pain HYDROcodone/APAP 5-325MG [[place] 5-325] 2 each PO Q6HR PRN #24 tab PRN Reason: Pain Scale 6 To 10 Famotidine [Pepcid] 20 mg PO BID tab Azithromycin [Zithromax Z-pack] 0 mg PO DIRECTED #6 tab Meclizine [Antivert] 25 mg PO BID PRN #60 tab PRN Reason: dizziness Continue Lovastatin [Mevacor] 10 mg PO HS Losartan [Cozaar] 50 mg PO DAILY Levothyroxine Sodium [Synthroid] 75 mcg PO DAILY Discharge Medication List Levothyroxine Sodium [Synthroid] 75 mcg PO DAILY 02/24/19 [History] Losartan [Cozaar] 50 mg PO DAILY 02/24/19 [History] Lovastatin [Mevacor] 10 mg PO HS 02/24/19 [History] Azithromycin [Zithromax Z-pack] 0 mg PO DIRECTED #6 tab 02/28/19 [Rx] Cholecalciferol [Vitamin D3 (25 Mcg = 1000 Iu)] 2,000 unit PO DAILY tab 02/28/19 [Rx] Famotidine [Pepcid] 20 mg PO BID tab 02/28/19 [Rx] HYDROcodone/APAP 5-325MG [[place] 5-325] 2 each PO Q6HR PRN #24 tab 02/28/19 [Rx] Ibuprofen [Motrin] 800 mg PO TID PRN #90 tab 02/28/19 [Rx] Lidocaine 5% Patch [Lidoderm 5% Patch] 3 patch TOPICAL DAILY #21 patch 02/28/19 [Rx] Meclizine [Antivert] 25 mg PO BID PRN #60 tab 02/28/19 [Rx] Follow up Appointment(s)/Referral(s): Sergio Pace DO [Doctor of Osteopathic Medicine] - 2 Weeks (dizziness) [facility], [NON-STAFF] - As Needed Moises Urbina MD [Primary Care Provider] - 1 Week (office closed at time of discharge. Please call to make apointment.) Patient Instructions/Handouts: Traumatic Pneumothorax (DC), Rib Fracture (DC), Vertigo (DC) Discharge Disposition: HOME SELF-CARE
== END 2019-02-28 13:41 | disposition home health service (06) | DRG 200 ==
LOC: EC 15:12 → 4SSUR 18:13
PROVIDERS: ADMIT Family Medicine; ATTEND Family Medicine
PROC: 3E0R3BZ Introduction of Anesthetic Agent into Spinal Canal, Percutaneous Approach (ICD-10-PCS; 2019-02-25)
PROC: 00HU33Z Insertion of Infusion Device into Spinal Canal, Percutaneous Approach (ICD-10-PCS; principal; 2019-02-25 10:30)
DX: S27.0XXA Traumatic pneumothorax, initial encounter (principal); S22.43XA Multiple fractures of ribs, bilateral, initial encounter for closed fracture; S27.321A Contusion of lung, unilateral, initial encounter; J98.11 Atelectasis; N28.1 Cyst of kidney, acquired; R00.1 Bradycardia, unspecified; S40.012A Contusion of left shoulder, initial encounter; S80.812A Abrasion, left lower leg, initial encounter; S80.811A Abrasion, right lower leg, initial encounter; G89.11 Acute pain due to trauma; R42 Dizziness and giddiness; M75.32 Calcific tendinitis of left shoulder; I71.4 Abdominal aortic aneurysm, without rupture; E03.9 Hypothyroidism, unspecified; E78.5 Hyperlipidemia, unspecified; I10 Essential (primary) hypertension; H91.90 Unspecified hearing loss, unspecified ear; Z79.890 Hormone replacement therapy; Z79.899 Other long term (current) drug therapy; Z87.891 Personal history of nicotine dependence; Z88.5 Allergy status to narcotic agent; W11.XXXA Fall on and from ladder, initial encounter; Y92.008 Other place in unspecified non-institutional (private) residence as the place of occurrence of the external cause; Z82.49 Family history of ischemic heart disease and other diseases of the circulatory system; Z82.5 Family history of asthma and other chronic lower respiratory diseases
CPT/HCPCS: 36415; 62325; 70450; 71045; 71046; 71260; 72125; 74177; 80053; 80306; 80320; 81003; 83605; 85025; 85610; 85730; 86850; 86900; 86901; 93005; 94760; 96361; 96374; 99285